=== PATIENT | female | born 1965 | race Caucasian/White ===

== ENCOUNTER 2019-06-23 13:19 | Emergency (ER) | payer MEDICARE, MEDICAID ==
[~2019-06-23] VITALS: Ht 165.1 cm; Wt 59.0 kg
[~2019-06-23 13:19] MED LIST: ABILIFY; ABILIFY15 MG PO; BUPROPION; CLONAZEPAM; CLONAZEPAM PO; OMEPRAZOLE; RESTORIL; WELLBUTRIN SR150 MG PO
[2019-06-23] MEDS ORDERED: FLEXERIL PO (13:31)
[2019-06-23] MEDS ORDERED: XANAX 0.5 MG0.5 M1 PO (13:31)
[2019-06-23] MEDS ORDERED: LEVOXYL25 MCG PO (13:31)
[2019-06-23] MEDS ORDERED: NORCO 5-325 TA1 EAC1 PO (13:31)
[2019-06-23 15:06] VITALS: BP 121/69
== END 2019-06-23 15:06 | disposition home or self-care (01) ==
LOC: M.ERS 13:19
DX: Z48.00 Encounter for change or removal of nonsurgical wound dressing (principal); Z91.041 Radiographic dye allergy status; Z91.013 Allergy to seafood